=== PATIENT | female | born 1965 | race Two or more races ===

== ENCOUNTER 2024-05-18 09:10 | Day surgery (SDC) | payer MEDICAID, SELFPAY ==
[2024-05-17 14:39] VITALS: BMI 27.8
[2024-05-18] VITALS (8 sets, daily range): BP systolic 117–152; BP diastolic 76–87; PULSE 77–97; RESP 10–19; TEMP 36.8–37.2; O2SAT 94–99; BMI 21.6
[2024-05-18] MEDS: fentaNYL CIT INJ 50 mCg/ML AMP 2ML (ASD USE ONLY) IV (13:32)
[2024-05-18] MEDS: DiphenhydrAMINE INJ 50 MG/ML VIAL 25 MG IV (13:32)
[2024-05-18] MEDS: SODIUM CHLORIDE 0.9% 500 ML 500 ML 20 ML IV (13:33)
[2024-05-18] MEDS: MIDAZOLAM INJ 1 MG/ML VIAL 2 ML (ASD USE ONLY) 2 MG IV (13:35)
== END 2024-05-18 14:30 | disposition home or self-care (01) ==
PROVIDERS: Referring Provider Surgery; Visit Provider Surgery
PROC: 0DBE8ZX Excision of Large Intestine, Via Natural or Artificial Opening Endoscopic, Diagnostic (ICD-10-PCS; CPT 45380; principal; 2024-05-18 12:15)
DX: R19.5 Other fecal abnormalities (principal); I10 Essential (primary) hypertension; E78.5 Hyperlipidemia, unspecified; E11.9 Type 2 diabetes mellitus without complications
CPT/HCPCS: 45378; J1200; J2250; J3010; J7040

== ENCOUNTER 2024-05-31 13:49 | Outpatient (AMB) | payer MEDICAID, SELFPAY ==
[2024-05-31 14:00] VITALS: BP 132/84; PULSE 80; RESP 19; TEMP 36.4; O2SAT 97; BMI 22.6
--- NOTE | 2024-05-31 14:00 | GSCOFFNT_ITS ---
Vital Signs - [facility] 05/31/24 14:00 Height 1.65 m Height Method Stated Weight 61.689 kg Weight Measurement Method Standing Scale BMI 22.6 BP 132/84 H Blood Pressure Source Automatic Cuff Blood Pressure Location Left Upper Arm Position Sitting Respiration 19 Pulse 80 Pulse Source Monitor Temp 97.6 F Temp Source Temporal Artery Scan Pulse Oximetry (%) 97 Oxygen Delivery Method Room Air Med/Allergies Allergies & Medications Allergies No Known Allergies Allergy (Verified 05/31/24 14:00) Medication Reconciliation ibuprofen 800 mg tablet 800 mg PO TID ##0 05/25/12 [History Confirmed 05/31/24] atorvastatin 20 mg tablet 20 mg PO QDAY 04/21/23 [History Confirmed 05/31/24] empagliflozin 25 mg tablet (Jardiance) 25 mg PO QDAY 04/21/23 [History Confirmed 05/31/24] glipizide 5 mg tablet 5 mg PO QDAY 04/21/23 [History Confirmed 05/31/24] lisinopril 5 mg tablet 5 mg PO QDAY 04/21/23 [History Confirmed 05/31/24] sitagliptin phosphate 50 mg-metformin 1,000 mg tablet (Janumet) 1 tab PO BID 04/21/23 [History Confirmed 05/31/24] MA Intake Visit Data Collection New Patient or Established: Established Patient (seen at [facility] within 3 years) Seen by Clinical Staff ONLY (RN/MA): No Reason for Visit:: COLONOSCOPY RESULTS Pain Present Currently: No Legal Project Manager Required: Yes PCP or OBGYN visit in last 3 months: Yes Hx Now: No Do You Feel Safe at Home: Yes Authorities Contacted: N/A Smoking Status Smoking Status: Never smoker Immunization / Flu Flu Vaccine in the Last 12 Months: No Flu Vaccine Exclusion Criteria: No Exclusion Criteria Past Medical History Past Medical History NEUROLOGIC: Negative Seizures CARDIAC: Positive Cardiac Disorders, Hypercholesterolemia and Hypertension; Negative Congestive Heart Failure RESPIRATORY: Negative Chronic Obstructive Pulmonary Disease (COPD) GENITOURINARY: Negative Renal Disease ENDOCRINE: Positive Diabetes Mellitus Type 2; Negative Diabetes Mellitus Type 1 OTHER HISTORY: Negative Blood Transfusions or Anesthesia Reactions Surgical History SURGICAL: Positive Section Social History SMOKING STATUS: Smoking status: Never smoker ALCOHOL: Alcohol Intake: Never HOUSING: Housing: House HPI HPI Narrative 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 Pt reports feeling well overall, she states she ate solid food the day before the colonoscopy ROS Review of Systems Systems Reviewed: All systems reviewed, normal except as documented Objective/Exam General General Appearance: alert, cooperative and well groomed Results Colonoscopy report reviewed Assessment & Plan Diagnosis / Problem List (1) Encounter to discuss colonoscopy results: Status: Acute Assessment & Plan: 58F s/p attempted colonoscopy which was aborted due to solid stool. I explained pt will need to follow up for repeat colonoscopy MICHOACANO and reiterated the need to avoid solid food the day before. All questions were answered and pt will reach out after her trip to [place] Office Procedures GNS Level of Care Nursing/Assessment Patient Status: Established Patient Nursing Assessment/Reassesment: Medication Reconciliation, Update PMH in EMR and Vital Signs Coordination of Care: Complex Care and Chronic Disease 1-5, Consent,records obtained, informed consent, Education Simp Pt/Fam, Results/Orders obtained and Staff clarify orders Special Needs: Language special needs Established Patient Charge Established Patient Point Assignment: 90 Established Patient Point Charge: EP Level 3 (80-115) Patient Portal Questionaires Social History Living Situation History Housing: House Tobacco History Smoking Status: Never smoker Alcohol History Alcohol Intake: Never Domestic Abuse History Do You Feel Safe at Home: Yes Review of Systems Report any current symptoms Only answer those that you have currently: Past Medical History Past Medical History Have you ever been diagnosed with any of the following: Neurological Problems Seizures: No Cardiology Problems Hypercholesterolemia: Yes Congestive Heart Failure: No Hypertension: Yes Respiratory Problems Chronic Obstructive Pulmonary Disease (COPD): No Genital/Urinary Problems Renal Disease: No Endocrine Problems Diabetes Mellitus Type 1: No Diabetes Mellitus Type 2: Yes Other Problems Blood Transfusions: No Anesthesia Reactions: No
== END 2024-05-31 14:21 | disposition home or self-care (01) ==
LOC: HODSRG 13:49
PROVIDERS: PCP Surgery Plastic and Reconstructive Surgery; Referring Provider Surgery Plastic and Reconstructive Surgery; Supervising Provider Surgery; Visit Provider Surgery
DX: Z71.2 Person consulting for explanation of examination or test findings (principal); E78.00 Pure hypercholesterolemia, unspecified; I10 Essential (primary) hypertension; E11.9 Type 2 diabetes mellitus without complications
CPT/HCPCS: 99213; G0463

== ENCOUNTER 2025-01-13 07:09 | Emergency (ER) | payer MEDICAID, SELFPAY ==
[2025-01-13 07:21] VITALS: BP 145/87; PULSE 73; RESP 18; TEMP 36.7; O2SAT 98; BMI 30.2
--- NOTE | 2025-01-13 07:22 | XR_ITS ---
Examination: CT chest, without intravenous contrast. CT abdomen, without intravenous contrast. CT pelvis, without intravenous contrast. 2-D sagittal and coronal reconstructions. 3-D reconstructions. Date and time of exam: January 13, 2025, 1023 hours INDICATIONS: Right chest upper back and abdominal pain today CTDI vol (mgy) 6.66 DLP (MGycm) 441 Technique: Multiple CT images, 3.0 mm slice thickness, obtained chest, abdomen, pelvis, with the high-resolution 64 slice scanner.. Sagittal and coronal 2-D reconstructions are obtained. 3-D reconstructions Low dose protocols were performed. One or more of the following dose reduction techniques were used; automated exposure control, adjustment of the mA and/or KV according to patient size, use of iterative reconstruction technique. Findings: No thoracic aortic aneurysm dilatation Pulmonary artery segments are nonenlarged. No paratracheal or tracheobronchial or bronchopulmonary adenopathy Minor atelectasis in the lingular segment No pneumonia or pulmonary edema or pneumothorax, no pleural disease No visualized liver or splenic lesion No gallstones No pancreatic or adrenal mass Mild renal scarring No renal or ureteral calculi, no hydronephrosis Aorta normal size Normal appendix No bowel obstruction No diverticulitis Contrast in the colon Atrophic uterus No adnexal mass No bladder mass or bladder calculi Significant osteopenia Grade 1 anterolisthesis L4 on L5 L4-L5 severe overall spinal stenosis, sagittal image 92, axial image 187, 11 mm central paracentral disc with facet arthropathy and thickening of ligamentum flavum circumferentially narrowing the thecal sac and producing moderate left L4 ganglionic compression IMPRESSION: No mediastinal lymphadenopathy No pneumonia, pulmonary edema or pleural disease Mild renal scarring No renal or ureteral calculi, no hydronephrosis Normal appendix No bowel obstruction L4-L5 severe overall acquired spinal stenosis including moderate left L5 ganglionic compression, consider elective MRI lumbar spine without contrast follow-up
[2025-01-13 07:56] LABS: Glucose Estimated Average 163 mg/dL (80-131); Hemoglobin A1C 7.3 % Hgb (4.8-6.0)
[2025-01-13 08:03] LABS: Alanine Aminotransferase 17 U/L (10-49); Albumin, Serum 4.6 gm/dL (3.5-5.0); Albumin/Globulin Ratio 1.8 (1.2-2.2); Alkaline Phosphatase 70 U/L (46-116); Anion Gap 11 (7-16); Aspartate Amino Transferase 23 U/L (0-34); BUN/Creatinine Ratio 19 Ratio (12-20); Bilirubin,Total 0.4 mg/dL (0.3-1.2); Blood Urea Nitrogen 13 mg/dL (9-23); Calcium 9.7 mg/dL (8.3-10.6); Calcium (Corrected) 9.7 mg/dL (8.5-10.1); Carbon Dioxide 26.7 mMol/L (20.0-31.0); Chloride 103 mMol/L (98-107); Creatinine (Component) 0.7 mg/dL (0.6-1.3); Estimated Creatinine Clearance 78.8 mL/min (>60); Globulin 2.6 gm/dL (2.3-3.5); Glucose 112 mg/dL (74-106); Lipase 34 U/L (12-53); Osmolality,Calculated 282 (275-295); Potassium 4.2 mMol/L (3.4-5.1); Sodium 141 mMol/L (136-145); Total Protein 7.2 gm/dL (5.7-8.2); Troponin I < 0.002 ng/mL (0.0-0.045); eGFR > 60 See Note
[2025-01-13 09:12] LABS: Collection Type, Urine Clean Catch
[2025-01-13 09:26] LABS: Basophils # (Auto) 0.1 Thou/mm3 (0.0-0.2); Basophils % (Auto) 1 % (0-2.5); Eosinophils # (Auto) 0.1 Thou/mm3 (0.0-0.5); Eosinophils % (Auto) 1 % (0-10); Hematocrit 37.1 % (36.0-46.0); Hemoglobin 12.4 g/dL (12.0-16.0); Immature Granulocytes Auto 0.03 Thou/mm3 (0.00-0.00); Lymphocytes # (Auto) 2.2 Thou/mm3 (1.0-4.8); Lymphocytes % (Auto) 24 % (10-50); Mean Corpuscular HGB Conc 33.4 g/dl (31.0-37.0); Mean Corpuscular Hemoglobin 29.5 pg (25.0-35.0); Mean Corpuscular Volume 88 fL (80-100); Monocytes # (Auto) 0.5 Thou/mm3 (0.0-0.8); Monocytes % (Auto) 5 % (0-12); Neutrophils # (Auto) 6.4 Thou/mm3 (1.8-7.7); Neutrophils % (Auto) 70 % (37-80); Nucleated Red Blood Cell # 0.00 Thou/mm3 (0.00-0.00); Nucleated Red Blood Cell % 0 /100 WBC (0); Platelet Count 223 Thou/mm3 (140-440); RDW Standard Deviation 41.6 fL (36.4-46.3); Red Blood Count 4.20 Miln/mm3 (4.00-5.20); White Blood Count 9.2 Thou/mm3 (3.6-11.0)
[2025-01-13 09:37] LABS: Bilirubin,Urine Negative (Negative); Blood,Urine Negative (Negative); Clarity,Urine Clear (Clear/Hazy); Color,Urine Colorless (Lt Yel-Yel); Culture Indicated,Urine Not Indicated; Glucose, Urine 4+ (Negative); Ketones,Urine Negative (Negative); Leukocyte Esterase,Urine Negative (Negative); Nitrite,Urine Negative (Negative); PH,Urine 6.0 (5.0-7.0); Protein,Urine Negative (Neg - Trace); RBC,Urine 1 /hpf (0-3); Specific Gravity,Urine 1.021 (1.001-1.035); Squamous Epithelial Cell,Urine 3 /hpf (0-5); Urobilinogen,Urine Negative mg/dL (0.0-1.0); WBC,Urine < 1 /hpf (0-5)
--- NOTE | 2025-01-13 12:03 | PD.EDBACK ---
ED Back Injury Pain RME/HPI General Chief Complaint: Back Pain/Injury Stated Complaint: BACK PAIN Time Seen by Provider: 01/13/25 07:12 Arrival date/time: 01/13/25 07:09 59-year-old female presents to the emergency department today complains of right upper back and right flank pain patient report symptom onset a few months ago patient reports he is awaiting a colonoscopy. Patient reports no nausea vomiting or fever Limitations: no limitations Related Data Home Medications ?Medication ?Instructions ?Recorded ?Confirmed ibuprofen 800 mg tablet 800 mg PO TID ##0 05/25/12 05/31/24 atorvastatin 20 mg tablet 20 mg PO QDAY 04/21/23 05/31/24 empagliflozin 25 mg tablet 25 mg PO QDAY 04/21/23 05/31/24 (Jardiance) glipizide 5 mg tablet 5 mg PO QDAY 04/21/23 05/31/24 lisinopril 5 mg tablet 5 mg PO QDAY 04/21/23 05/31/24 sitagliptin phosphate 50 1 tab PO BID 04/21/23 05/31/24 mg-metformin 1,000 mg tablet (Janumet) Previous Rx's ?Medication ?Instructions ?Recorded peg 3350-electrolytes 236 240 ml PO Q10M #4,000 mL 07/12/24 gram-22.74 gram-6.74 gram-5.86 gram solution (Golytely) cyclobenzaprine 10 mg tablet 10 mg PO TID PRN muscle spasm 10 01/13/25 days #30 tab-caps ibuprofen 800 mg tablet 800 mg PO TID PRN pain #30 tabs 01/13/25 Allergies Allergy/AdvReac Type Severity Reaction Status Date / Time No Known Allergies Allergy Verified 01/13/25 07:11 Review of Systems Review of Systems Systems Reviewed: All systems reviewed, normal except as documented Constitutional Constitutional: Reports system reviewed and no additional complaints, except as documented, Denies fever(s) and Denies headache(s) Eyes Eyes: Reports system reviewed and no additional complaints, except as documented and Denies blurry vision ENT Ears, Nose, Mouth, and Throat: Reports system reviewed and no additional complaints, except as documented, Denies headache(s), Denies nasal congestion and Denies nasal discharge Cardiovascular Cardiovascular: Reports system reviewed and no additional complaints, except as documented, Denies chest pain and Denies dyspnea Respiratory Respiratory: Reports system reviewed and no additional complaints, except as documented, Denies chest congestion, Denies cough and Denies dyspnea Gastrointestinal Gastrointestinal: Reports system reviewed and no additional complaints, except as documented and Denies abdominal pain Musculoskeletal Musculoskeletal: Reports system reviewed and no additional complaints, except as documented and Reports back pain Integumentary/Breasts Skin/Breast: Reports system reviewed and no additional complaints, except as documented and Denies rash Neurologic Neurologic: Reports system reviewed and no additional complaints, except as documented, Reports as per HPI and Denies headache(s) Past Medical History Past Medical History NEUROLOGIC: Negative Seizures CARDIAC: Positive Cardiac Disorders, Hypercholesterolemia and Hypertension; Negative Congestive Heart Failure RESPIRATORY: Negative Chronic Obstructive Pulmonary Disease (COPD) GENITOURINARY: Negative Renal Disease ENDOCRINE: Positive Diabetes Mellitus Type 2; Negative Diabetes Mellitus Type 1 OTHER HISTORY: Negative Blood Transfusions or Anesthesia Reactions Surgical History SURGICAL: Positive Section Social History SMOKING STATUS: Never smoker ED Exam General Limitations: Present no limitations General appearance: Present alert and in no apparent distress Head Head exam: Present atraumatic Eye Eye exam: Present normal appearance, PERRL and EOMI ENT ENT exam: Present normal exam, normal oropharynx and mucous membranes moist Neck Neck exam: Present normal inspection, full ROM and trachea midline Chest Chest inspection: Present normal inspection and symmetric chest wall rise Respiratory Respiratory exam: Present normal lung sounds bilaterally Cardiovascular Cardiovascular exam: Present regular rate, normal rhythm and normal heart sounds Abdominal Exam Abdominal exam: Present soft and normal bowel sounds Extremities Exam Extremities exam: Present normal inspection and full ROM Back Exam Back exam: Present normal inspection and full ROM Back 1 view image:  1. Pain Neurological Exam Neurological exam: Present alert, oriented X3 and CN II-XII intact Psychiatric Psychiatric exam: Present normal affect and normal mood Skin Skin exam: Present warm, dry, intact and normal color Course Quality Measures none Orders Category Date Time Status CT chest abdomen pelvis wo Stat Exams 01/13/25 07:22 Completed A1C [Glycohemoglobin w (eAG)] Stat Lab 01/13/25 07:34 Completed CBC Stat Lab 01/13/25 07:34 Completed Comprehensive Metabolic Panel Stat Lab 01/13/25 07:34 Completed Lipase Stat Lab 01/13/25 07:34 Completed Troponin I Stat Lab 01/13/25 07:34 Completed UA, C/S IF [Urinalysis, C/S if Indicated] Stat Lab 01/13/25 08:57 Completed Ketorolac Inj [Toradol Inj] Med 01/13/25 12:04 Discontinued 30 mg IM X1 ONE Vital Signs Vital signs: Vital Signs Temperature 98.1 F 01/13/25 07:21 Pulse Rate 73 01/13/25 07:21 Respiratory Rate 18 01/13/25 07:21 Blood Pressure 145/87 H 01/13/25 07:21 Pulse Oximetry (%) 98 01/13/25 07:21 Oxygen Delivery Method Room Air 01/13/25 07:21 O2 saturation 98% room air within the limits Back Pain / Injury MDM Narrative MDM Narrative:: 59-year-old female presents to the emergency department today complains of right upper back and right flank pain patient report symptom onset a few months ago patient reports he is awaiting a colonoscopy. Patient reports no nausea vomiting or fever On exam patient well-appearing patient does not appear ill or toxic no acute stress Patient has no tenderness in the abdomen Lab work and imaging obtained no acute emergent findings noted Patient discharged home no distress to follow-up with primary care doctor next 24 to 48 hours for worsening symptoms or concerns return immediately Patient data External records reviewed:: [facility] previous records Clinical information provided by:: patient Social determinants that could affect healthcare access:: none Patient has the following chronic illnesses:: See history How is presenting disease/condition affected by chronic disease/condition?: uneffected by Evaluation data The following diagnostics were reviewed and interpreted by me:: lab results and radiology exam(s) Lab and/or radiology exams considered but not ordered:: Labs radiology obtained Interpretation Summary: Reviewed by me Medications / Prescriptions Medications or Prescriptions considered but not ordered:: Given Medication administrations:: Medication Administration History Discontinued Medications Ketorolac Tromethamine (Ketorolac Inj 30 Mg/Ml Vial) 30 mg IM X1 ONE Stop: 01/13/25 12:05 Last Admin: 01/13/25 12:17 Dose: 30 mg Documented By: VIRI Given Consultations Consultation(s) initiated? (list below): No Diagnosis Differential diagnosis back pain/injury: lumbar radiculopathy, sciatica and strain of lumbar region Most likely diagnosis given after review of the tests above:: Back pain Admission Indicated Admission indicated?: not indicated Admission Request Was there a request for admission?: No Disposition Plan Disposition Plan: Discharge Discharge Attestation Discharge Attestation: The patient and all family members were given an opportunity to ask questions and understood the discharge instructions. Discharge instructions specifically effects, indications for sooner follow up or return to the emergency department, and the expected course of current diagnosis. Patient condition: Stable Discharge Plan Plan Patient Disposition: HOME (Self Care) Discharge Disposition comment: Stable Prescriptions/Referrals Prescriptions/Med Rec: New cyclobenzaprine 10 mg tablet 10 mg PO TID PRN (Reason: muscle spasm) 10 Days Qty: 30 0RF ibuprofen 800 mg tablet 800 mg PO TID PRN (Reason: pain) Qty: 30 0RF No Action lisinopril 5 mg tablet 5 mg PO QDAY glipizide 5 mg tablet 5 mg PO QDAY Jardiance 25 mg tablet 25 mg PO QDAY atorvastatin 20 mg tablet 20 mg PO QDAY Janumet 50-1,000 mg tablet 1 tab PO BID ibuprofen 800 MG tablet 800 mg PO TID Qty: 0 peg 3350-electrolytes [Golytely] 236-22.74-6.74 -5.86 gram recon soln 240 ml PO Q10M Qty: 4000 0RF Rx Instructions: until fecal effluent is clear Referrals: Franc Lopez MD [Primary Care Provider, Family Practice] - 01/14/25 Problem List Clinical Impression: Back pain Patient/Caregiver Discharge Instructions Education Materials: Back Safety: Turning Additional Instructions: Please follow up with your primary care doctor in the next 24-48hrs for any worsening symptoms return here immediately Print Language: Romanian Stand Alone Forms: Grazyna Award Info., Patient Portal Info Letter PA/SOPHY Supervising Physician PA/SOPHY Supervising Physician: dr calvert
[2025-01-13] MEDS: KETOROLAC INJ 30 MG/ML VIAL IM (12:17)
== END 2025-01-13 12:24 | disposition home or self-care (01) ==
PROVIDERS: Nurse Practitioner Primary Care; Emergency Provider Emergency Medicine; PCP Family Medicine
DX: M54.9 Dorsalgia, unspecified (principal)
CPT/HCPCS: 36415; 71250; 74176; 80053; 81001; 81025; 83036; 83690; 84484; 85025; 96372; 99283; J1885